=== PATIENT | male | born 1950 | race Caucasian/White ===

== ENCOUNTER 2018-01-02 21:13 | Emergency (ER) | payer MEDICARE ==
[2018-01-02] MEDS ORDERED: Acetaminophen 325 MG TAB ONE (21:51)
[2018-01-02 22:02] LABS: #Lymphocytes 1.4 thou/uL (1.20-3.40); #Monocytes 0.3 thou/uL (0.11-0.59); #Neutrophils 5.6 thou/uL (1.40-6.50); %Basophils 0.7 % (0.0-1.0); %Eosinophils 0.5 % (0.0-10.0); %Lymphocytes 18.3 % (21.0-51.0); %Monocytes 4.4 % (0.0-10.0); Hemoglobin 14.7 g/dL (14.0-18.0); Mean Corpuscular HGB CONC 34.4 g/dL (32.0-36.0); Mean Corpuscular Hemoglobin 29.8 pg (27.0-31.0); Mean Corpuscular Volume 86.5 fl (80.0-94.0); Platelet Count 181 thou/uL (130-400); RBC Distribution Width 11.6 % (11.5-14.5); Red Blood Cell (RBC) Count 4.93 mill/uL (4.70-6.10); White Blood Cell (WBC) Count 7.3 thou/uL (4.8-10.8)
[2018-01-02 22:16] LABS: ALT (SGPT) 15 U/L (8-55); AST (SGOT) 22 U/L (5-34); Albumin 4.3 g/dL (3.4-4.8); Alkaline Phosphatase 66 U/L (40-150); Anion Gap 14 mmol/L (10-20); BUN (Urea Nitrogen) 13 mg/dL (8.4-25.7); Bilirubin, Total 1.8 mg/dL (0.2-1.2); Calc. Creatinine Clearance 0 mL/min (70-130); Calcium 10.3 mg/dL (7.8-10.44); Carbon Dioxide 24 mmol/L (23-31); Chloride 104 mmol/L (98-107); Estimated GFR-MDRD 78; Globulin 3.7 g/dL (2.4-3.5); Glucose 124 mg/dL (80-115); Lipase 31 U/L (8-78); Potassium 4.3 mmol/L (3.5-5.1); Sodium 138 mmol/L (136-145)
--- NOTE | 2018-01-02 23:50 | CT ---
CT CHEST WITH CONTRAST CT ABDOMEN WITH CONTRAST CT PELVIS WITH CONTRAST 01/02/18 HISTORY: Fall. COMPARISON: None. FINDINGS: There is marked abnormal appearance of the thyroid bilaterally with numerous hypointense insinuating nodules. Followup ultrasound is going to be necessary. No acute aortic injury. There are flowing osteophytes throughout the thoracic and lumbar spine with m inimal degenerative disc space disease suggesting diffuse idiopathic skeletal hyperostosis. Moderate degenerative disease of both hips. Lungs are clear. No focal air space consolidation, pneumothorax or effusion. No dilated loops of large or small bowel. The appendix is visualized and is normal. Numerous bilateral renal cysts. There is partial osseous fusion of the right SI joint. Enthesopathic changes of the hamstring tendons bilaterally. Moderate facet arthropathy. No transverse process fracture of the lumbar spine. IMPRESSION: 1. No acute abnormality in the chest, abdomen or pelvis. 2. Abnormal hypodense mass within the left lobe of the thyroid as well as some hypodensities in the right lobe of thyroid. Nonemergent thyroid ultrasound is highly recommended. 3. Polycystic kidneys. POS: [facility]
== END 2018-01-03 00:01 | disposition home or self-care (01) ==
LOC: SCSER 21:13
DX: R10.9 Unspecified abdominal pain (principal); E78.5 Hyperlipidemia, unspecified; I10 Essential (primary) hypertension; E66.9 Obesity, unspecified; W07.XXXA Fall from chair, initial encounter
CPT/HCPCS: 71260; 74177; 80053; 83690; 85025

== ENCOUNTER 2018-02-07 15:12 | Outpatient (CLI) | payer MEDICARE | END 2018-02-07 15:13 | disposition home or self-care (01) | LOC: BICULT 15:12 | PROVIDERS: ATTEND Family Medicine | DX: E04.2 Nontoxic multinodular goiter (principal); E07.9 Disorder of thyroid, unspecified | CPT/HCPCS: 76536 ==

== ENCOUNTER 2018-02-26 08:11 | Day surgery (SDC) | payer MEDICARE ==
[2018-02-23 09:20] VITALS: BMI 51.5
[~2018-02-26 08:11] MED LIST: Prevnar 13-Val Conj/PF 0.5 ML SYRINGE IM ONE
[2018-02-26] MEDS ORDERED: Sodium Bicarbonate 2.5 MEQ/5 ML VIAL ONE (08:33)
[2018-02-26] MEDS ORDERED: Lidocaine 1% PF 5 ML VIAL ONE (08:33)
[2018-02-26 09:15] VITALS: BP 173/80; TEMP 98.6
--- NOTE | 2018-02-26 11:16 | ULT ---
ULTRASOUND GUIDED LEFT THYROID NODULE BIOPSY: Comparison: Thyroid ultrasound evaluation from [facility] dated January 282017. Indication: TIRADS 4 nodule involving the left thyroid gland requiring FNA. Technique: Informed consent was obtained. Preprocedure ultrasound demonstrated the mixed solid and cy stic nodule involving the left thyroid gland consistent with a TIRADS 4 lesion measuring up to 5 cm. Site overlying this nodule was prepped and draped in the usual sterile fashion. buffered 1% Lidocaine was administered to overlying subcutaneous tissue as well as the overlying strap muscles near the le ft thyroid lobe. Under ultrasound guidance, four separate 25 gauge needles were guided down into the thyroid nodule. Four separate FNAs were obtained. The FNAs were submitted to the word processor technician on site. She retrieved the samples. Post procedure images demonstrate no significant intraparenchyma l hematoma. Patient tolerated the FNA without difficulty. IMPRESSION: Successful left thyroid nodule FNA. POS: [facility]
== END 2018-02-26 09:55 | disposition home or self-care (01) ==
LOC: ULT 08:11
PROVIDERS: ATTEND Family Medicine
PROC: 0GBG3ZX Excision of Left Thyroid Gland Lobe, Percutaneous Approach, Diagnostic (ICD-10-PCS; principal; 2018-02-26)
DX: E04.2 Nontoxic multinodular goiter (principal); E78.5 Hyperlipidemia, unspecified
CPT/HCPCS: 60100; 76942; 88173; J2001

== ENCOUNTER → 2018-03-12 | Day surgery (SDC) | payer MEDICARE ==
[2018-03-09 12:01] VITALS: BMI 45.6
[~2018-03-12] MED LIST changes: +Lidocaine 1% PF 5 ML VIAL ONE; -Prevnar 13-Val Conj/PF 0.5 ML SYRINGE IM ONE
[2018-03-12 13:20] VITALS: BP 151/72; TEMP 97.8
--- NOTE | 2018-03-12 16:06 | ULT ---
ULTRASOUND GUIDED BIOPSY AND FINE NEEDLE ASPIRATION NODULE LEFT LOBE OF THE THYROID GLAND: DATE: 03/12/18. HISTORY: Inadequate specimen obtained on prior thyroid fine needle aspiration of the left thyroid nodule. Rep eat labs was requested. TECHNIQUE: The procedure including risks and complications were explained to the patient and informed consent wa s obtained. The patient was placed on the sonography table in the supine position. Limited sonograp hic evaluation of the left neck as performed. The previously noted cystic and predominantly solid no dule in the left lobe of the thyroid gland was localized. An area was marked and then meticulously p repped and draped in the usual sterile fashion. The skin and subcutaneous tissues were infiltrated w ith buffered 1% Lidocaine for local anesthesia. A small skin incision was made. A single 20-gauge c ore needle biopsy specimen was obtained. The procedure was then discussed with the pathologist at th is time and repeat fine needle aspiration was requested. As a result, approximately four 25-gauge fi ne needle aspiration specimens were obtained. A 2nd core needle biopsy specimen was also again obtai dutch. Specimen adequacy was determined by pathology. No additional sampling was performed. Hemostas is was achieved with direct pressure. Post-biopsy and fine needle aspiration images demonstrate no f luid or hematoma adjacent to the left lobe of the thyroid gland. A dry sterile dressing was placed. The patient tolerated the procedure well and without immediate co mplication. IMPRESSION: Technically successful ultrasound-guided fine needle aspiration and core biopsy of left thyroid nodul e. POS: [facility]
== END ==
LOC: ULT 12:24
PROVIDERS: ATTEND Family Medicine
PROC: 0GBG3ZX Excision of Left Thyroid Gland Lobe, Percutaneous Approach, Diagnostic (ICD-10-PCS; principal; 2018-03-12)
DX: E04.1 Nontoxic single thyroid nodule (principal); Z79.899 Other long term (current) drug therapy
CPT/HCPCS: 60100; 76942; 88172; 88173; 88305; 88333; J2001

== ENCOUNTER 2019-01-11 06:07 | Day surgery (SDC) | payer MEDICARE ==
--- NOTE | 2019-01-11 10:39 | OP ---
DATE OF PROCEDURE: 01/11/2019 PREOPERATIVE DIAGNOSIS: Colorectal cancer screening. DESCRIPTION OF PROCEDURE: After informed consent was obtained, the patient was placed in the left lateral decubitus position. Anesthesia was administered per the Anesthesia Department. Forward-viewing endoscope was inserted in the rectum after perianal inspection and rectal exam were normal. This passed to the cecum with ease. The cecum, ileocecal valve, and appendiceal orifice were normal. The prep was excellent. The cecum showed a small 6 mm polyp that was removed with cold snare polypectomy. The ascending was normal except for single diverticulum. The transverse was normal except for small 3 mm polyp that was removed with cold snare polypectomy. Two polyps were in the sigmoid, removed with cold snare polypectomy. Retroflexion in rectum was normal. ASSESSMENT: 1. Four small colon polyps-status post cold snare polypectomy. 2. Single diverticulum in the ascending colon. 3. Otherwise normal colonoscopy. RECOMMENDATIONS: 1. Await histopathology. 2. Repeat colonoscopy based on histopathology. Job ID: [id number]
[2019-01-11] MEDS ORDERED: Glycopyrrolate 0.2 MG/ML 5 ML SYRINGE ONE (17:05)
[2019-01-11] MEDS ORDERED: Lidocaine 1% PF 5 ML VIAL ONE (17:05)
[2019-01-11] MEDS ORDERED: PROPOFOL 200 MG/20 ML VIAL ONE (17:05)
== END 2019-01-11 10:48 | disposition home or self-care (01) ==
LOC: SDC 06:07
PROVIDERS: ATTEND Internal Medicine Gastroenterology
PROC: 0DJD8ZZ Inspection of Lower Intestinal Tract, Via Natural or Artificial Opening Endoscopic (ICD-10-PCS; principal; 2019-01-11)
PROC: 0DBH8ZZ Excision of Cecum, Via Natural or Artificial Opening Endoscopic (ICD-10-PCS; 2019-01-11)
PROC: 0DBL8ZZ Excision of Transverse Colon, Via Natural or Artificial Opening Endoscopic (ICD-10-PCS; 2019-01-11)
PROC: 0DBN8ZZ Excision of Sigmoid Colon, Via Natural or Artificial Opening Endoscopic (ICD-10-PCS; 2019-01-11)
DX: Z12.11 Encounter for screening for malignant neoplasm of colon (principal); D12.0 Benign neoplasm of cecum; D12.3 Benign neoplasm of transverse colon; D12.5 Benign neoplasm of sigmoid colon; K57.30 Diverticulosis of large intestine without perforation or abscess without bleeding
CPT/HCPCS: 88305; J2001; J2704